=== PATIENT | male | born 1960 | race Hispanic/Latino ===

== ENCOUNTER 2019-03-15 02:19 | Emergency (ER) | payer OTHER ==
[~2019-03-15] VITALS: Ht 165.1 cm; Wt 67.0 kg
[~2019-03-15 02:19] MED LIST: ENALAPRIL2.5 MG PO; FLEXERIL PO; GLIPIZIDE10 M3 PO; LIPITOR40 M1 PO; METFORMIN1000 MG PO; ZESTRIL10 M1 PO
[2019-03-15] MEDS ORDERED: PREDNISONE50 MG PO (04:23)
[2019-03-15] MEDS ORDERED: TORADOL PO (04:25)
[2019-03-15] MEDS ORDERED: TRAMADOL HCL50 MG PO (04:25)
[2019-03-15 04:30] VITALS: BP 132/70
== END 2019-03-15 04:40 | disposition home or self-care (01) ==
LOC: ED 02:19
DX: M54.16 Radiculopathy, lumbar region (principal); E11.9 Type 2 diabetes mellitus without complications; Z79.84 Long term (current) use of oral hypoglycemic drugs